=== PATIENT | male | born 1955 | race Caucasian/White ===

== ENCOUNTER 2024-04-18 18:03 | Emergency (ER) | payer MEDICARE, OTHER ==
[~2024-04-18] VITALS: Ht 188 cm; Wt 113.6 kg
[~2024-04-18 18:03] MED LIST: ATORVASTATIN CA40 MG; CYPROHEPTADINE H4 M1; DESYREL DIVIDO150 M1; LEVOTHYROXIN0.075 MG; MELATONIN3 M3; METOPROLOL SUCC25 M1; PROAIR HFA0.09 MG/AC; PROZAC20 M1; SINGULAIR; VITAMIN D310 MC1
[2024-04-18] MEDS ORDERED: Tdap Vaccine 0.5 ML SYRINGE IM ONE (18:30)
[2024-04-18] MEDS ORDERED: CEPHALEXIN500 M1 PO (18:40)
[2024-04-18] MEDS ORDERED: LEVOFLOXACIN750 MG PO (18:40)
[2024-04-18 18:42] VITALS: BP 137/73
== END 2024-04-18 18:43 | disposition home or self-care (01) ==
LOC: ED 18:03
DX: S60.351A Superficial foreign body of right thumb, initial encounter (principal); W45.8XXA Other foreign body or object entering through skin, initial encounter
CPT/HCPCS: 90715

== ENCOUNTER 2024-06-02 18:02 | Emergency (ER) | payer MEDICARE, OTHER ==
[~2024-06-02] VITALS: Ht 188 cm; Wt 111.4 kg
[~2024-06-02 18:02] MED LIST changes: +CEPHALEXIN500 M1 PO; +LEVOFLOXACIN750 MG PO
[2024-06-02 19:50] VITALS: BP 105/59
== END 2024-06-02 19:50 | disposition home or self-care (01) ==
LOC: ED 18:02
DX: S81.012A Laceration without foreign body, left knee, initial encounter (principal); Z96.652 Presence of left artificial knee joint; W10.9XXA Fall (on) (from) unspecified stairs and steps, initial encounter; Y93.01 Activity, walking, marching and hiking

== ENCOUNTER 2024-06-25 08:27 | Emergency (ER) | payer MEDICARE, OTHER ==
[~2024-06-25] VITALS: Ht 188 cm; Wt 122.5 kg
[2024-06-25 09:19] LABS: BASO # 0.03 K/mm3 (0.02-0.10); EOS # 0.29 K/mm3 (0.04-0.40); EOS % 4.2 % (0.0-4.0); HEMATOCRIT 36.6 % (42.0-52.0); HEMOGLOBIN 11.7 g/dL (13.5-18.0); LYMPH# 0.97 K/mm3 (1.50-4.00); MEAN CELL VOLUME 101 fl (78-100); MEAN CORPUSCULAR HEMOGLOBIN 32 pg (27-31); MEAN CORPUSCULAR HGB CONC 32 g/dL (33-37); MEAN PLATELET VOLUME 9.8 fl (7.4-10.4); MONO # 0.57 K/mm3 (0.20-0.80); NEU # 5.04 K/mm3 (1.40-6.50); PLATELET COUNT 256 K/mm3 (130-400); RED BLOOD COUNT 3.62 M/mm3 (4.20-5.60); RED CELL DISTRIBUTION WIDTH 13.9 % (11.5-14.5); WHITE BLOOD COUNT 6.9 K/mm3 (4.8-10.8)
[2024-06-25 09:22] LABS: ALBUMIN 3.6 g/dL (3.4-4.8)
[2024-06-25 09:23] LABS: CALCIUM 8.7 mg/dL (8.3-10.5)
[2024-06-25 09:24] LABS: TOTAL PROTEIN 6.3 g/dL (6.2-8.1)
[2024-06-25 09:26] LABS: TOTAL BILIRUBIN 0.9 mg/dL (0.2-1.2)
[2024-06-25] MEDS ORDERED: Iohexol 300 - 100 ML VIAL IV ONE (09:48)
[2024-06-25] MEDS ORDERED: cefTRIAXone 1 G in Water For Injection,Sterile 10 ML IV ONE (12:00)
[2024-06-25] MEDS ORDERED: Azithromycin 500 MG in NS 250 ML IV ONE (12:00)
[2024-06-25 14:19] VITALS: BP 123/73
== END 2024-06-25 14:19 | disposition other institution (70) ==
LOC: ED 08:27
PROVIDERS: Physician Assistant
DX: J18.8 Other pneumonia, unspecified organism (principal); R79.89 Other specified abnormal findings of blood chemistry; D72.829 Elevated white blood cell count, unspecified
CPT/HCPCS: J0456; J0696; J7050; Q9967

== ENCOUNTER 2024-06-25 13:22 | Inpatient (IN) | payer MEDICARE, OTHER ==
[~2024-06-25] VITALS: Ht 188 cm; Wt 119.0 kg
[2024-06-25] MEDS ORDERED: Ibuprofen 200 MG TAB PO PRN (13:45)
[2024-06-25] MEDS ORDERED: Acetaminophen 325 MG TAB PO PRN (13:45)
[2024-06-25] MEDS ORDERED: Docusate Sodium 100 MG CAP PO PRN (13:45)
[2024-06-25] MEDS ORDERED: Polyethylene Glycol 3350 Powder 17 GM PACKET PO PRN (13:45)
[2024-06-25] MEDS ORDERED: Famotidine 20 MG TAB PO PRN (14:00)
[2024-06-25] MEDS ORDERED: Albuterol 90 MCG/PUFF MDI IH PRN (14:15)
[2024-06-25 14:29] VITALS: BP 123/73
[2024-06-25] MEDS ORDERED: Albuterol/Ipratropium 3 MG-0.5 MG/3 ML Neb Soln IH PRN (15:15)
[2024-06-25 16:00] VITALS: BP 123/73
[2024-06-25 18:19] VITALS: BP 123/73
[2024-06-25 20:00] VITALS: BP 115/72
[2024-06-25 23:06] VITALS: BP 130/78
[2024-06-26] VITALS (7 sets, daily range): BP systolic 99–155; BP diastolic 65–79
[2024-06-26 05:56] LABS: BASO # 0.03 K/mm3 (0.02-0.10); EOS # 0.38 K/mm3 (0.04-0.40); EOS % 5.2 % (0.0-4.0); HEMATOCRIT 38.6 % (42.0-52.0); HEMOGLOBIN 12.3 g/dL (13.5-18.0); LYMPH# 1.32 K/mm3 (1.50-4.00); MEAN CELL VOLUME 103 fl (78-100); MEAN CORPUSCULAR HEMOGLOBIN 33 pg (27-31); MEAN CORPUSCULAR HGB CONC 32 g/dL (33-37); MEAN PLATELET VOLUME 9.6 fl (7.4-10.4); MONO # 0.71 K/mm3 (0.20-0.80); NEU # 4.91 K/mm3 (1.40-6.50); PLATELET COUNT 272 K/mm3 (130-400); RED BLOOD COUNT 3.76 M/mm3 (4.20-5.60); WHITE BLOOD COUNT 7.4 K/mm3 (4.8-10.8)
[2024-06-26 06:08] LABS: ALBUMIN 3.7 g/dL (3.4-4.8)
[2024-06-26 06:09] LABS: CALCIUM 8.8 mg/dL (8.3-10.5)
[2024-06-26 06:10] LABS: TOTAL PROTEIN 6.5 g/dL (6.2-8.1)
[2024-06-26 06:12] LABS: TOTAL BILIRUBIN 1.1 mg/dL (0.2-1.2)
[2024-06-26] MEDS ORDERED: cefTRIAXone 1 G in Water For Injection,Sterile 10 ML IV SCH (08:00)
[2024-06-26] MEDS ORDERED: Influenza Virus Vaccine, Hi-Dose Triv '24-25 (65 YR+) 0.5 ML SYRINGE IM SCH (09:00)
[2024-06-26] MEDS ORDERED: FLUoxetine 10 MG TAB/CAP PO SCH (09:00)
[2024-06-26] MEDS ORDERED: Azithromycin 500 MG in NS 250 ML IV SCH (09:00)
[2024-06-26] MEDS ORDERED: Montelukast 10 MG TAB PO SCH (09:00)
[2024-06-26] MEDS ORDERED: Cholecalciferol (Vit D3) 25 MCG (1,000 Units) TAB PO SCH (09:00)
[2024-06-27 03:26] VITALS: BP 133/79
[2024-06-27 07:15] VITALS: BP 127/84
[2024-06-27] MEDS ORDERED: Amoxicillin/Clavulanate K+ 875/125 MG TAB PO SCH (08:00)
[2024-06-27] MEDS ORDERED: Azithromycin 250 MG TAB PO SCH (09:00)
[2024-06-27 11:14] VITALS: BP 107/67
[2024-06-27 15:11] VITALS: BP 130/75
[2024-06-27 19:00] VITALS: BP 128/73
[2024-06-27 23:40] VITALS: BP 123/73
[2024-06-28 02:47] VITALS: BP 125/80
[2024-06-28] MEDS ORDERED: IPRATROPIUM BROM3 M1 IH (08:42)
[2024-06-28] MEDS ORDERED: AMOXICILLIN AND1 TA2 PO (08:42)
[2024-06-28] MEDS ORDERED: ZITHROMAX500 M2 PO (08:42)
[2024-06-28 08:52] VITALS: BP 112/69
[2024-06-28 08:57] LABS: ALBUMIN 4.1 g/dL (3.4-4.8)
[2024-06-28 08:59] LABS: CALCIUM 9.2 mg/dL (8.3-10.5)
[2024-06-28 09:00] LABS: TOTAL PROTEIN 7.5 g/dL (6.2-8.1)
[2024-06-28 09:02] LABS: BASO # 0.04 K/mm3 (0.02-0.10); EOS # 0.42 K/mm3 (0.04-0.40); EOS % 4.4 % (0.0-4.0); HEMOGLOBIN 13.4 g/dL (13.5-18.0); LYMPH# 1.43 K/mm3 (1.50-4.00); MEAN CELL VOLUME 102 fl (78-100); MEAN CORPUSCULAR HEMOGLOBIN 32 pg (27-31); MEAN CORPUSCULAR HGB CONC 32 g/dL (33-37); MEAN PLATELET VOLUME 9.8 fl (7.4-10.4); MONO # 0.69 K/mm3 (0.20-0.80); NEU # 6.89 K/mm3 (1.40-6.50); PLATELET COUNT 337 K/mm3 (130-400); RED BLOOD COUNT 4.13 M/mm3 (4.20-5.60); WHITE BLOOD COUNT 9.5 K/mm3 (4.8-10.8)
== END 2024-06-28 10:40 | disposition home or self-care (01) | DRG 195 ==
LOC: MED/SURG 13:22
PROVIDERS: ADMIT Internal Medicine
DX: J18.9 Pneumonia, unspecified organism (principal); R79.89 Other specified abnormal findings of blood chemistry; E03.9 Hypothyroidism, unspecified; F32.A Depression, unspecified; F41.9 Anxiety disorder, unspecified; I10 Essential (primary) hypertension; Z87.891 Personal history of nicotine dependence
CPT/HCPCS: J0456; J0696; J1650; J7050

== ENCOUNTER 2024-08-25 03:58 | Emergency (ER) | payer MEDICARE, OTHER ==
[~2024-08-25] VITALS: Ht 188 cm; Wt 117.3 kg
[~2024-08-25 03:58] MED LIST changes: +AMOXICILLIN AND1 TA2 PO; +IPRATROPIUM BROM3 M1 IH; +ZITHROMAX500 M2 PO
[2024-08-25] MEDS ORDERED: Ketorolac 30 MG/ML VIAL IV ONE (04:30)
[2024-08-25] MEDS ORDERED: LORazepam 2 MG/ML VIAL IV ONE (04:45)
[2024-08-25 04:47] LABS: ALBUMIN 3.9 g/dL (3.4-4.8); BASO # 0.02 K/mm3 (0.02-0.10); EOS # 0.09 K/mm3 (0.04-0.40); EOS % 1.3 % (0.0-4.0); HEMATOCRIT 42.1 % (42.0-52.0); HEMOGLOBIN 13.4 g/dL (13.5-18.0); LYMPH# 0.63 K/mm3 (1.50-4.00); MEAN CELL VOLUME 98 fl (78-100); MEAN CORPUSCULAR HEMOGLOBIN 31 pg (27-31); MEAN CORPUSCULAR HGB CONC 32 g/dL (33-37); MEAN PLATELET VOLUME 10.3 fl (7.4-10.4); NEU # 5.82 K/mm3 (1.40-6.50); PLATELET COUNT 167 K/mm3 (130-400); RED BLOOD COUNT 4.28 M/mm3 (4.20-5.60); RED CELL DISTRIBUTION WIDTH 13.9 % (11.5-14.5); WHITE BLOOD COUNT 7.2 K/mm3 (4.8-10.8)
[2024-08-25 04:49] LABS: CALCIUM 9.1 mg/dL (8.3-10.5)
[2024-08-25 04:50] LABS: TOTAL PROTEIN 7.2 g/dL (6.2-8.1)
[2024-08-25 04:52] LABS: TOTAL BILIRUBIN 0.9 mg/dL (0.2-1.2)
[2024-08-25] MEDS ORDERED: Furosemide 40 MG/4 ML VIAL IV ONE (05:30)
[2024-08-25] MEDS ORDERED: KLOR-CON M1010 MEQ PO (09:28)
[2024-08-25] MEDS ORDERED: FUROSEMIDE20 MG PO (09:28)
[2024-08-25 09:45] VITALS: BP 118/74
== END 2024-08-25 09:45 | disposition home or self-care (01) ==
LOC: ED 03:58
PROVIDERS: Family Medicine
DX: S23.29XA Dislocation of other parts of thorax, initial encounter (principal); S22.32XA Fracture of one rib, left side, initial encounter for closed fracture; I11.0 Hypertensive heart disease with heart failure; I50.9 Heart failure, unspecified; G47.30 Sleep apnea, unspecified; E87.6 Hypokalemia; I45.10 Unspecified right bundle-branch block; X50.9XXA Other and unspecified overexertion or strenuous movements or postures, initial encounter
CPT/HCPCS: J1650; J1885; J1940; J2060